=== PATIENT | male | born 1995 | race Caucasian/White ===

== ENCOUNTER 2018-04-20 00:53 | Emergency (ER) | payer MEDICAID, OTHER ==
[2018-04-20 01:09] VITALS: O2SAT 98
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
[2018-04-20 02:02] VITALS: BP 114/70; PULSE 89; RESP 20; TEMP 98.3
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
== END 2018-04-20 02:02 | disposition home or self-care (01) ==
LOC: C.ER 00:53
DX: S46.912A Strain of unspecified muscle, fascia and tendon at shoulder and upper arm level, left arm, initial encounter (principal); V69.49XA Driver of heavy transport vehicle injured in collision with other motor vehicles in traffic accident, initial encounter; Y92.410 Unspecified street and highway as the place of occurrence of the external cause